=== PATIENT | female | born 1970 | race Caucasian/White ===

== ENCOUNTER 2018-03-23 11:37 | Emergency (ER) | payer OTHER ==
[~2018-03-23] VITALS: Ht 167.6 cm; Wt 113.4 kg
--- OUTSIDE RECORDS SUMMARY | ~2018-03-23 | XMS | Clinical Summary ---
Demographics + + + | Address | [address] | | | [place] [address] | + + + | Home Phone | | + + + | Preferred Language | Unknown | + + + | Marital Status | | + + + | Christianity Affiliation | Unknown | + + + | Race | Unknown | + + + | Ethnic Group | Unknown | + + + Author + + + | Author | [facility] | | | [facility] [place] | + + + | Organization | [facility] | | | [facility] [place] | + + + | Address | Unknown | + + + | Phone | Unavailable | + + + Support + + +---------+ + | Name | Relationship | Address | Phone | + + +---------+ + | Durga Walker | ECON | Unknown | | + + +---------+ + | Raymond Valladares | ECON | Unknown | | + + +---------+ + Care Team Providers + +------+ + | Care Food Production Associate Name | Role | Phone | + +------+ + | Avtar Huang NP | PP | Unavailable | + +------+ + Allergies + + + + + + | Active Allergy | Reactions | Severity | Noted | Comments | | | | | Date | | + + + + + + | Penicillins | Nausea And Vomiting | Medium | 16 | | | | | | 15 | | + + + + + + Current Medications + + +-------+---------+------+------+-------+ | Prescription | Sig. | Disp. | Refills | Star | End | Statu | | | | | | t | Date | s | | | | | | Date | | | + + +-------+---------+------+------+-------+ | albuterol 2.5 mg/3 | Take 2.5 mg by | | | | | Activ | | mL nebulizer | nebulization every 6 | | | | | e | | solution | hours as needed for | | | | | | | | Wheezing. | | | | | | + + +-------+---------+------+------+-------+ | meclizine | Take 25 mg by mouth | | | | | Activ | | (ANTIVERT) 25 mg | 3 times daily as | | | | | e | | tablet | needed. | | | | | | + + +-------+---------+------+------+-------+ | pseudoePHEDrine | Take 30 mg by mouth | | | | | Activ | | (SUDAFED) 30 mg | 3 times daily as | | | | | e | | tablet | needed. | | | | | | + + +-------+---------+------+------+-------+ | albuterol 90 | Inhale 2 puffs into | | | | | Activ | | mcg/puff inhaler | the lungs every 4 | | | | | e | | | hours as needed for | | | | | | | | Wheezing. | | | | | | + + +-------+---------+------+------+-------+ | fluticasone | 2 sprays by Nasal | | | | | Activ | | (FLONASE) 50 | route Daily. | | | | | e | | mcg/nasal spray | | | | | | | + + +-------+---------+------+------+-------+ | ranitidine | Take 150 mg by mouth | | | | | Activ | | (ZANTAC) 150 mg | as needed. | | | | | e | | tablet | | | | | | | + + +-------+---------+------+------+-------+ | calcium carbonate | Take 1 tablet by | | | | | Activ | | (TUMS) 500 mg | mouth Daily. | | | | | e | | chewable tablet | | | | | | | + + +-------+---------+------+------+-------+ Active Problems + + + | Problem | Noted Date | + + + | Esophageal reflux | 11/16/2014 | + + + | Abdominal pain, generalized | 11/16/2014 | + + + | Nausea with vomiting | 11/16/2014 | + + + | Early satiety | 11/16/2014 | + + + | H/O laparoscopic adjustable gastric banding | | + + + | Acid indigestion | | + + + | Obesity (BMI 30-39.9) | | + + + Family History + + +------+ + | Medical History | Relation | Name | Comments | + + +------+ + | Hypertension | Father | | | + + +------+ + | Diabetes, IDDM | Maternal | | | | | Grandfath | | | | | er | | | + + +------+ + | Hypertension | Mother | | | + + +------+ + | Osteoarthritis | Mother | | | + + +------+ + | Diabetes, IDDM | Paternal | | | | | Grandmoth | | | | | er | | | + + +------+ + | Cancer | | | | + + +------+ + | Diabetes | | | | + + +------+ + | Hypertension | | | | + + +------+ + + +------+--------+ + | Relation | Name | Status | Comments | + +------+--------+ + | Father | | Alive | | + +------+--------+ + | Maternal Grandfather | | | | + +------+--------+ + | Mother | | Alive | | + +------+--------+ + | Paternal Grandmother | | | | + +------+--------+ + Social History + +-------+ +--------+------+ | Tobacco Use | Types | Packs/Day | Years | Date | | | | | Used | | + +-------+ +--------+------+ | Never Smoker | | | | | + +-------+ +--------+------+ + +---+---+---+ | Smokeless Tobacco: | | | | | Never Used | | | | + +---+---+---+ + + +---------+ + | Alcohol Use | Drinks/We | oz/Week | Comments | | | ek | | | + + +---------+ + | No | | | | + + +---------+ + + + + | Sex Assigned at | Date Recorded | | | | + + + | Not on file | | + + + Last Filed Vital Signs + + + + | Vital Sign | Reading | Time Taken | + + + + | Blood Pressure | 116/60 | 12/18/2014 1110 PDT | + + + + | Pulse | 76 | 12/18/20140 PDT | + + + + | Temperature | 36.3 C (97.3 F) | 12/18/2014 0845 PDT | + + + + | Respiratory Rate | 15 | 12/18/20140 PDT | + + + + | Oxygen Saturation | 99% | 12/18/20140 PDT | + + + + | Inhaled Oxygen | - | - | | Concentration | | | + + + + | Weight | 97.5 kg (215 lb) | 12/18/2014844 PDT | + + + + | Height | 167.6 cm (5' 6") | 12/18/2014844 PDT | + + + + | Body Mass Index | 34.7 | 12/18/2014844 PDT | + + + + Plan of Treatment + + + + + | Health Maintenance | Due Date | Last Done | Comments | + + + + + | Vaccine: | | | | | Dtap/Tdap/Td (1 - | 1 | | | | Tdap) | | | | + + + + + | Cervical Cancer | | | | | Screening (Pap) | 2 | | | + + + + + | Vaccine: Influenza | | | | | (#1) | 8 | | | + + + + + Results Not on filefrom Last 3 Months Insurance + +--------+ +--------+ +---------+ | Payer | Benefi | Subscriber | Type | Phone | Address | | | t Plan | ID | | | | | | / | | | | | | | Group | | | | | + +--------+ +--------+ +---------+ | [employer] | [employer] | [id number] | Medica | +- | | | MEDICAID HMO | HEALTH | | id | 9821 | | | | [place] | | | | | | | [place] | | | | | + +--------+ +--------+ +---------+ + +--------+ +--------+ + + | Guarantor Name | Accoun | Relation to | Date | Phone | Billing Address | | | t Type | Patient | of | | | | | | | | | | + +--------+ +--------+ + + | NATE | Person | Self | [birth year] Home: | [address] | | [place] | [place] | | 1970 | [phone] | [place] | | [place] | [place] | | | [phone] | [phone] | + +--------+ +--------+ + +
--- OUTSIDE RECORDS SUMMARY | ~2018-03-23 | XMS ---
Demographics + + + | Address | [address] | | | [place] [address] | + + + | Preferred Language | Unknown | + + + | Marital Status | Unknown | + + + | Taoist Affiliation | Unknown | + + + | Race | Unknown | + + + | Ethnic Group | Unknown | + + + Author + + + | Author | [facility] | + + + | Organization | [facility] | + + + | Address | [address] | | | [place] [address] | + + + | Phone | | + + + Care Team Providers + + + + | Care Director Search Name | Role | Phone | + + + + Unavailable | Unavailable | + + + + PROBLEMS +---------+ + + +--------+ + + | Type | Condition | ICD9-CM | XNE18-YR | Onset | Condition | SNOMED | | | | Code | Code | Dates | Status | Code | +---------+ + + +--------+ + + | Problem | GERD | 530.81 | | | Active | 578446515 | | | (gastroeso | | | | | | | | phageal | | | | | | | | reflux | | | | | | | | disease) | | | | | | +---------+ + + +--------+ + + | Problem | Obesity | | E66.9 | | Active | 125062671 | +---------+ + + +--------+ + + | Problem | Type 2 | | E11.9 | | Active | 364939484 | | | diabetes | | | | | | | | mellitus | | | | | | | | without | | | | | | | | complicati | | | | | | | | ons | | | | | | +---------+ + + +--------+ + + | Problem | Hypertensi | | I10 | | Active | 16287191 | | | on | | | | | | +---------+ + + +--------+ + + | Problem | Calcaneal | M77.32 | | | Active | 8176915110 | | | spur of | | | | | [address] | | | left foot | | | | | | +---------+ + + +--------+ + + | Problem | Other | G89.29 | | | Active | 36901923 | | | chronic | | | | | | | | pain | | | | | | +---------+ + + +--------+ + + | Problem | Pain in | | M79.671 | | Active | 4838537732 | | | right foot | | | | | [address] | +---------+ + + +--------+ + + | Problem | Calcaneal | M77.31 | | | Active | 7711122106 | | | spur of | | | | | [address] | | | right foot | | | | | | +---------+ + + +--------+ + + | Problem | Pain in | | M79.672 | | Active | 7861619937 | | | left foot | | | | | [address] | +---------+ + + +--------+ + + | Problem | Hematochez | 578.1 | | | Active | 444025014 | | | ia | | | | | | +---------+ + + +--------+ + + | Problem | Menieres | 386.00 | | | Active | 02874561 | | | disease | | | | | | +---------+ + + +--------+ + + | Problem | Allergic | 493.90 | | | Active | 60166163 | | | asthma NOS | | | | | | | | w/o | | | | | | | | mention of | | | | | | | | status | | | | | | | | asthmaticu | | | | | | | | s or acute | | | | | | | | | | | | | | | | exacerbati | | | | | | | | on | | | | | | +---------+ + + +--------+ + + | Problem | Chronic | 477.9 | | | Active | 15003092 | | | allergic | | | | | | | | rhinitis | | | | | | +---------+ + + +--------+ + + | Problem | Back pain | 724.5 | | | Active | 865158471 | +---------+ + + +--------+ + + | Problem | Hx of | V45.86 | | | Active | 913630440 | | | laparoscop | | | | | | | | ic gastric | | | | | | | | banding | | | | | | +---------+ + + +--------+ + + ALLERGIES Unknown Allergies SOCIAL HISTORY No smoking Hx information available PLAN OF CARE VITAL SIGNS MEDICATIONS Unknown Medications RESULTS No Results PROCEDURES No Known procedures IMMUNIZATIONS No Known Immunizations"
--- OUTSIDE RECORDS SUMMARY | ~2018-03-23 | XMS | Clinical Summary ---
Demographics + + + | Address | [address] | | | [place] [address] | + + + | Home Phone | | + + + | Preferred Language | Unknown | + + + | Marital Status | | + + + | Anabaptism Affiliation | Unknown | + + + [...] [place] | | | | | [address] | | + + + + + Care Team Providers + +------+ + | Care Shelter Case Manager Name | Role | Phone | + +------+ + | Avtar Huang NP | PP | | + +------+ + Source Comments CHRISTINA is fully live on both EpicCare Ambulatory and EpicCare InPatient.[facility] Allergies + + + + + + [...] | + + + + + | INFLUENZA VACCINE | | | | | (FLU SHOT) | 8 | | | + + [...] | | | + +--------+ +--------+-------+---------+ | MANAGER SPECIALTY MEDICAID | MANAGER SPECIALTY | xxxxxxxx | Medica | | | [...] | [birth year] | Home: | [address] | | [place] | [place]/Fam | | 1970 | [phone] | [address] [place] | | | [place] | | | [address] | [phone] | + +--------+ +--------+ + +
--- OUTSIDE RECORDS SUMMARY | ~2018-03-23 | XMS | Clinical Summary ---
Demographics + + + | Address | [address] | | | [place] [address] | + + + | Home Phone | | + + + | Preferred Language | Unknown | + + + | Marital Status | | + + + | Church Affiliation | Unknown | + + + [...] [place] | | | | | [address] | | + + + + + Care Team Providers + +------+ + | Care Inspector Brake Lining Name | Role | Phone | + +------+ + | Avtar Huang NP | PP | | + +------+ + Source Comments CHRISTINA is fully live on both EpicCare Ambulatory and EpicCare InPatient.[facility] Allergies + + + + + [...] | | | + +--------+ +--------+-------+---------+ | [employer] | [employer] | xxxxxxxx | Medica | | | [...] | [birth year] | Home: | [address] | | [place] | [place]am | | 1970 | [phone] [address] [place] | | | [place] | | | [address] | [address] | + +--------+ +--------+ + +
--- OUTSIDE RECORDS SUMMARY | ~2018-03-23 | XMS ---
Demographics + + + | Address | [address] | | | [place] [address] | + + + | Preferred Language | Unknown | + + + | Marital Status | Unknown | + + + | Latter Day Affiliation | Unknown | + + + | Race | Unknown | + + + | Ethnic Group | Unknown | + + + Author + + + | Author | [facility] | + + + | Organization | [facility] | + + + | Address | [address] | | | [place] [address] | + + + | Phone | | + + + Care Team Providers + + + + | Care Doorshaker Name | Role | Phone | + + + + Unavailable | Unavailable | + + + + PROBLEMS + + + + + + + + | Type | Condition | ICD9-CM | AGR66-DG | Onset | Condition | SNOMED | | | | Code | Code | Dates | Status | Code | + + + + + + + + | Problem | GERD | 530.81 | | | Active | 611610226 | | | (gastroeso | | | | | | | | phageal | | | | | | | | reflux | | | | | | | | disease) | | | | | | + + + + + + + + | Problem | Obesity | | E66.9 | | Active | 857431449 | + + + + + + + + | Problem | Type 2 | | E11.9 | | Active | 623423960 | | | diabetes | | | | | | | | mellitus | | | | | | | | without | | | | | | | | complicati | | | | | | | | ons | | | | | | + + + + + + + + | Problem | Hypertensi | | I10 | | Active | 28495830 | | | on | | | | | | + + + + + + + + | Problem | Calcaneal | M77.32 | | | Active | 9995364586 | | | spur of | | | | | [address] | | | left foot | | | | | | + + + + + + + + | Problem | Other | G89.29 | | | Active | 02429473 | | | chronic | | | | | | | | pain | | | | | | + + + + + + + + | Problem | Pain in | | M79.671 | | Active | 3689659895 | | | right foot | | | | | [address] | + + + + + + + + | Problem | Calcaneal | M77.31 | | | Active | 4866058793 | | | spur of | | | | | [address] | | | right foot | | | | | | + + + + + + + + | Problem | Pain in | | M79.672 | | Active | 0875755956 | | | left foot | | | | | [address] | + + + + + + + + | Assessment | Abscess | | L02.91 | 17 Apr, | Active | 923205122 | | | | | | 2017 | | | + + + + + + + + | Problem | Hematochez | 578.1 | | | Active | 882786973 | | | ia | | | | | | + + + + + + + + | Problem | Menieres | 386.00 | | | Active | 05854841 | | | disease | | | | | | + + + + + + + + | Problem | Allergic | 493.90 | | | Active | 24811328 | | | asthma NOS | | [...] on | | | | | | + + + + + + + + | Problem | Chronic | 477.9 | | | Active | 15530656 | | | allergic | | | | | | | | rhinitis | | | | | | + + + + + + + + | Problem | Back pain | 724.5 | | | Active | 843823994 | + + + + + + + + | Problem | Hx of | V45.86 | | | Active | 982821069 | | | laparoscop | | | | | | | | ic gastric | | | | | | | | banding | | | | | | + + + + + + + + ALLERGIES + + + + +--------+ | Substance | Reaction | Event Type | Date | Status | + + + + +--------+ | Penicillin | vomiting | Drug Allergy | Oct, | Active | + + + + +--------+ | cillins | throat | Non Drug | Oct, | Active | | | swelliing | Allergy | | | + + + + +--------+ SOCIAL HISTORY No smoking Hx information available PLAN OF CARE VITAL SIGNS + + + + | Height | 64 in | 2016-11-13 | + + + + | Weight | 276.2 lbs | 2016-11-13 | + + + + | BMI | 47.40 kg/m2 | 2016-11-13 | + + + + | Temperature | 98.2 degrees Fahrenheit | 2016-11-13 | + + + + | Heart Rate | 94 /min | 2016-11-13 | + + + + | Blood pressure systolic | 152 mm Hg | 2016-11-13 | + + + + | Blood pressure diastolic | 98 mm Hg | 2016-11-13 | + + + + MEDICATIONS + + + + +--------+ + +--------+ | Medicati | Instruct | Dosage | Frequenc | Start | End Date | Duration | Status | | on | ions | | y | Date | | | | + + + + +--------+ + +--------+ | ibuprofe | Oral q | 5 tab | | | | | Active | | n 200 mg | 6-8 | | | | | | | | | hours | | | | | | | + + + + +--------+ + +--------+ | Albutero | Inhalati | 3 ml as | 4h | | | 10 | Active | | l | on every | needed | | | | day(s) | | | Sulfate | 4 hrs | | | | | | | | (2.5 | | | | | | | | | MG/3ML) | | | | | | | | | 0.083% | | | | | | | | + + + + +--------+ + +--------+ | Albutero | Inhalati | 2 puffs | 4h | | | 30 | Active | | l | on every | as | | | | day(s) | | | Sulfate | 4 hrs | needed | | | | | | | HFA 108 | | | | | | | | | (90 | | | | | | | | | Base) | | | | | | | | | MCG/ACT | | | | | | | | + + + + +--------+ + +--------+ | SMZ-TMP | | 1 tab | 12h | | | | Active | | DS | | | | | | | | | 800-160 | | | | | | | | | mg | | | | | | | | + + + + +--------+ + +--------+ | Mucinex | Orally | 1 tablet | 12h | | | | Active | | 600 MG | every 12 | as | | | | | | | | hrs | needed | | | | | | + + + + +--------+ + +--------+ RESULTS No Results PROCEDURES + + + + + | Procedure | Date Ordered | Related Diagnosis | Body Site | + + + + + | Doctor no charge/no | November 13, 2016 | | | | charge for visit | | | | + + + + + IMMUNIZATIONS No Known Immunizations"
--- OUTSIDE RECORDS SUMMARY | ~2018-03-23 | XMS ---
Demographics + + + | Address | [address] | | | [place] [address] | + + + | Preferred Language | Unknown | + + + | Marital Status | Unknown | + + + | Buddhist Affiliation | Unknown | + + + | Race | Unknown | + + + | Ethnic Group | Unknown | + + + Author + + + | Author | [facility] | + + + | Organization | [facility] | + + + | Address | [address] | | | [place] [address] | + + + | Phone | | + + + Care Team Providers + + + + | Care Program Manager Slp Name | Role | Phone | + + + + Unavailable | Unavailable | + + + + PROBLEMS +---------+ + + +--------+ + + | Type | Condition | ICD9-CM | [id number] | Onset | Condition | SNOMED | | | | Code | Code | Dates | Status | Code | +---------+ + + +--------+ + + | Problem | GERD | 530.81 | | | Active | 261173029 | | | (gastroeso | | | | | | | | phageal | | | | | | | | reflux | | | | | | | | disease) | | | | | | +---------+ + + +--------+ + + | Problem | Obesity | | E66.9 | | Active | 479345330 | +---------+ + + +--------+ + + | Problem | Type 2 | | E11.9 | | Active | 771947126 | | | diabetes | | | | | | | | mellitus | | | | | | | | without | | | | | | | | complicati | | | | | | | | ons | | | | | | +---------+ + + +--------+ + + | Problem | Hypertensi | | I10 | | Active | 43391038 | | | on | | | | | | +---------+ + + +--------+ + + | Problem | Calcaneal | M77.32 | | | Active | 7833654683 | | | spur of | | | | | [address] | | | left foot | | | | | | +---------+ + + +--------+ + + | Problem | Other | G89.29 | | | Active | 52665174 | | | chronic | | | | | | | | pain | | | | | | +---------+ + + +--------+ + + | Problem | Pain in | | M79.671 | | Active | 8544087642 | | | right foot | | | | | [address] | +---------+ + + +--------+ + + | Problem | Calcaneal | M77.31 | | | Active | 1962661700 | | | spur of | | | | | [address] | | | right foot | | | | | | +---------+ + + +--------+ + + | Problem | Pain in | | M79.672 | | Active | 0914641834 | | | left foot | | | | | [address] | +---------+ + + +--------+ + + | Problem | Hematochez | 578.1 | | | Active | 622118282 | | | ia | | | | | | +---------+ + + +--------+ + + | Problem | Menieres | 386.00 | | | Active | 13971976 | | | disease | | | | | | +---------+ + + +--------+ + + | Problem | Allergic | 493.90 | | | Active | 75275813 | | | asthma NOS | | [...] | 477.9 | | | Active | 71607342 | | | allergic | | | | | | | | rhinitis | | | | | | +---------+ + + +--------+ + + | Problem | Back pain | 724.5 | | | Active | 024172494 | +---------+ + + +--------+ + + | Problem | Hx of | V45.86 | | | Active | 089789750 | | | laparoscop | | | | | | | | ic gastric | | | | | | | | banding | | | | | | +---------+ + + +--------+ + + ALLERGIES No Information SOCIAL HISTORY Never Assessed PLAN OF CARE VITAL SIGNS MEDICATIONS + + + + + + + +--------+ | Medicati | Instruct | Dosage | Frequenc | Start | End Date | Duration | Status | | on | ions | | y | Date | | | | + + + + + + + +--------+ | Metformi | Orally | 1 tablet | 12h | 25 Sep, | | 30 | Active | | n HCl | Twice a | with | | 2017 | | day(s) | | | 500 mg | day | meals | | | | | | + + + + + + + +--------+ | Atorvast | Orally | 1 tablet | 24h | 25 Sep, | | 30 | Active | | atin | Once a | | | 2016 | | day(s) | | | Calcium | day | | | | | | | | 40 mg | | | | | | | | + + + + + + + +--------+ RESULTS No Results PROCEDURES No Known procedures IMMUNIZATIONS No Known Immunizations MEDICAL (GENERAL) HISTORY + + + + | Type | Description | Date | + + + + | Medical History | COPD diagnosed 12/05 | | + + + + | Medical History | diabetes mellitus (prior to | | | | lap band) | | + + + + | Medical History | hypertension (prior to lap | | | | band) | | + + + + | Medical History | blood transfusion (after | | | | hysterectomy) | | + + + + | Medical History | Meniere's disease | | + + + + | Medical History | Mild hearing deficit in | | | | left ear. | | + + + + | Surgical History | appendectomy | 1990 | + + + + | Surgical History | supracervical hysterectomy, | 2002 | | | with RSO | | + + + + | Surgical History | lap band surgery | 2009 | + + + + | Surgical History | C section | | + + + + | Hospitalization History | ER visit for FLU | 07/30/16 | + + + +"
--- OUTSIDE RECORDS SUMMARY | ~2018-03-23 | XMS | Clinical Summary ---
Demographics + + + | Address | [address] | | | [place] [address] | + + + | Home Phone | | + + + | Preferred Language | Unknown | + + + | Marital Status | | + + + | Hinduism Affiliation | Unknown | + + + | Race | Unknown | + + + | Ethnic Group | Unknown | + + + Author + + + | Author | [facility] | | | and [place] | + + + | Organization | [facility] | | | and [...] Team Providers + +------+ + | Care Assembly Machine Tender Name | Role | Phone | + [...] | [employer] | [employer] | [id number] | Medica | +- | | | [...] | [place] | | | [address] | [address] | + +--------+ +--------+ + +
--- OUTSIDE RECORDS SUMMARY | ~2018-03-23 | XMS ---
Demographics + + + | Address | [address] | | | [place] [address] | + + + | Preferred Language | Unknown | + + + | Marital Status | Unknown | + + + | Worship Affiliation | Unknown | + + + | Race | Unknown | + + + | Ethnic Group | Unknown | + + + Author + + + | Author | [facility] | + + + | Organization | [facility] | + + + | Address | [address] | | | [place] [address] | + + + | Phone | | + + + Care Team Providers + + + + | Care Solar Panel Installation Supervisor Name | Role | Phone | + + + + Unavailable | Unavailable | + + + + PROBLEMS +---------+ + + +--------+ + + | Type | Condition | ICD9-CM | CLN00-DU | Onset | Condition | SNOMED | | | | Code | Code | Dates | Status | Code | +---------+ + + +--------+ + + | Problem | GERD | 530.81 | | | Active | 962838987 | | | (gastroeso | | | | | | | | phageal | | | | | | | | reflux | | | | | | | | disease) | | | | | | +---------+ + + +--------+ + + | Problem | Obesity | | E66.9 | | Active | 927245064 | +---------+ + + +--------+ + + | Problem | Type 2 | | E11.9 | | Active | 832757360 | | | diabetes | | | | | | | | mellitus | | | | | | | | without | | | | | | | | complicati | | | | | | | | ons | | | | | | +---------+ + + +--------+ + + | Problem | Hypertensi | | I10 | | Active | 40331757 | | | on | | | | | | +---------+ + + +--------+ + + | Problem | Calcaneal | M77.32 | | | Active | 4960560554 | | | spur of | | | | | 53294 | | | left foot | | | | | | +---------+ + + +--------+ + + | Problem | Other | G89.29 | | | Active | 74190805 | | | chronic | | | | | | | | pain | | | | | | +---------+ + + +--------+ + + | Problem | Pain in | | M79.671 | | Active | [id number] | | | right foot | | | | | 73563 | +---------+ + + +--------+ + + | Problem | Calcaneal | M77.31 | | | Active | 5535003861 | | | spur of | | | | | 425[address] | | | right foot | | | | | | +---------+ + + +--------+ + + | Problem | Pain in | | M79.672 | | Active | 2025200734 | | | left foot | | | | | 21111 | +---------+ + + +--------+ + + | Problem | Hematochez | 578.1 | | | Active | 845587609 | | | ia | | | | | | +---------+ + + +--------+ + + | Problem | Menieres | 386.00 | | | Active | 13475472 | | | disease | | | | | | +---------+ + + +--------+ + + | Problem | Allergic | 493.90 | | | Active | 41057475 | | | asthma NOS | | [...] | 477.9 | | | Active | 94452411 | | | allergic | | | | | | | | rhinitis | | | | | | +---------+ + + +--------+ + + | Problem | Back pain | 724.5 | | | Active | 040101146 | +---------+ + + +--------+ + + | Problem | Hx of | V45.86 | | | Active | 919189457 | | | laparoscop | | | | | | | | ic gastric | | | | | | | | banding | | | | | | +---------+ + + +--------+ + + ALLERGIES + + + + +--------+ | Substance | Reaction | Event Type | Date | Status | + + + + +--------+ | Penicillin | vomiting | Drug Allergy | Mar, | Active | + + + + +--------+ | cillins | throat | Non Drug | Mar, | Active | | | swelliing | Allergy | | | + + + + +--------+ SOCIAL HISTORY Never Assessed PLAN OF CARE + +---------+ | Activity | Details | + +---------+ +---+ | | +---+ + + + | Follow Up | 2 -3 Weeks Reason:null | + + + | Pending Test | TSH | + + + | Pending Test | Sedimentation Rate-Westergren | + + + | Pending Test | Comp. Metabolic Panel (14) | + + + | Pending Test | Lipid Panel | + + + | Pending Test | Hemoglobin A1C Panel | + + + | Pending Test | EKG | + + + VITAL SIGNS + + + + | Height | 64 in | 2017-04-18 | + + + + | Weight | 279 lbs | 2017-04-18 | + + + + | BMI | 47.89 kg/m2 | 2017-04-18 | + + + + | Temperature | 98.6 degrees Fahrenheit | 2017-04-18 | + + + + | Heart Rate | 87 /min | 2017-04-18 | + + + + | Blood pressure systolic | 160 mm Hg | 2017-04-18 | + + + + | Blood pressure diastolic | 111 mm Hg | 2017-04-18 | + + + + MEDICATIONS + + + + + + + +--------+ | Medicati | Instruct | Dosage | Frequenc | Start | End Date | Duration | Status | | on | ions | | y | Date | | | | + + + + + + + +--------+ | FreeStyl | | as | | 20 Sep, | | | Active | | e | | directed | | 2016 | | | | | Lancets | | | | | | | | | - | | | | | | | | + + + + + + + +--------+ | FreeStyl | | as | | 20 Sep, | | | Active | | e Lite - | | directed | | 2016 | | | | + + + + + + + +--------+ | Lisinopr | Orally | 1 tablet | 24h | 20 Sep, | | 30 | Active | | [place] | Once a | | | 2016 | | day(s) | | | chloroth | day | | | | | | | | iazide | | | | | | | | | 10-12.5 | | | | | | | | | MG | | | | | | | | + + + + + + + +--------+ | Meloxica | Orally | 1 tablet | 24h | 20 Sep, | 19 Nov, | 30 | Active | | m 7.5 MG | Once a | | | 2017 | 2017 | day(s) | | | | day | | | | | | | + + + + + + + +--------+ | Indocin | Orally | 1 | 8h | Feb, | | days | Active | | 50 mg | tid | capsule | | 2015 | | | | | | | with | | | | | | | | | food | | | | | | + + + + + + + +--------+ | Albutero | Inhalati | [...] + + + + + +--------+ | Albutero | Inhalati | [...] + + + + + +--------+ | FreeStyl | In Vitro | as | | 20 Sep, | | | Active | | e Lite | check | directed | | 2016 | | | | | Test - | glucose | | | | | | | | | daily | | | | | | | + + + + + + + +--------+ RESULTS No Results PROCEDURES + + +--------+ + | Procedure | Date Ordered | Result | Body Site | + + +--------+ + | DS[facility] MED/CURRENT | Apr 18, 2017 | | | | MED MERGE | | | | + + +--------+ + | DOC MEDS VERIFIED | Apr 18, 2017 | | | | W/PT OR RE | | | | + + +--------+ + IMMUNIZATIONS No Known Immunizations MEDICAL (GENERAL) HISTORY [...]
[~2018-03-23 11:37] MED LIST: ALBUTEROL SULF8.5 GM INH; ALBUTEROL2.5 MG/3 M INH; AZITHROMYCIN250 MG PO; BACTRIM DS TAB1 EACH PO; IBUPROFEN800 MG PO; LOMOTIL TABLET1 EACH PO; PREDNISONE20 MG PO; PSEUDOEPHEDRINE60 MG PO; TRAMADOL HCL50 MG PO; ZITHROMAX250 MG PO; ZOFRAN ODT4 MG PO
[2018-03-23] MEDS ORDERED: METFORMIN HCL1000 MG PO (11:46)
[2018-03-23] MEDS ORDERED: LISINOPRIL-HCT1 EAC2 PO (11:47)
[2018-03-23] MEDS ORDERED: NAPROSYN500 MG PO (12:15)
[2018-03-23] MEDS ORDERED: CYCLOBENZAPRINE5 MG PO (12:15)
== END 2018-03-23 12:31 | disposition home or self-care (01) ==
LOC: ED 11:37
DX: S86.812A Strain of other muscle(s) and tendon(s) at lower leg level, left leg, initial encounter (principal); E66.01 Morbid (severe) obesity due to excess calories; Z88.0 Allergy status to penicillin; Z91.018 Allergy to other foods; Z79.84 Long term (current) use of oral hypoglycemic drugs; Z79.899 Other long term (current) drug therapy; X58.XXXA Exposure to other specified factors, initial encounter; Y92.89 Other specified places as the place of occurrence of the external cause; Y99.0 Civilian activity done for income or pay
CPT/HCPCS: 99283

== ENCOUNTER 2018-05-04 10:57 | Emergency (ER) | payer OTHER ==
[~2018-05-04] VITALS: Ht 167.6 cm; Wt 113.4 kg
--- OUTSIDE RECORDS SUMMARY | ~2018-05-04 | XMS | Clinical Summary ---
Demographics + + + | Address | [address] | | | [place] [address] | + + + | Home Phone | | + + + | Preferred Language | Unknown | + + + | Marital Status | | + + + | Nondenominational Affiliation | Unknown | + + + | Race | White | + + + | Ethnic Group | Not or | + + + Author + + + | Author | [facility] | + + + | Organization | [facility] | + + + | Address | Unknown | + + + | Phone | Unavailable | + + + Support + + + + + | Name | Relationship | Address | Phone | + + + + + | JOSEPHINE WALKER | ECON | [address] | | | | | [place] | | | | | [address] | | + + + + + Care Team Providers + +------+ + | Care Training Representative Name | Role | Phone | + +------+ + | Avtar Huang NP | PP | | + +------+ + Source Comments CHRISTINA is fully live on both EpicCare Ambulatory and EpicCare InPatient.[facility] Allergies + + + + + + | Active Allergy | Reactions | Severity | Noted | Comments | | | | | Date | | + + + + + + | Penicillins | Nausea and Vomiting | | 05/06/20 | | | | | | 15 | | + + + + + + Current Medications + + +-------+---------+------+------+-------+ | Prescription | Sig. | Disp. | Refills | Star | End | Statu | | | | | | t | Date | s | | | | | | Date | | | + + +-------+---------+------+------+-------+ | FLUTICASONE 50 | 2 sprays once daily. | | 0 | 08/2 | | Activ | | mcg/actuation nasal | | | | 6/20 | | e | | spray,suspension | | | | 15 | | | + + +-------+---------+------+------+-------+ | OMEPRAZOLE 20 mg | Take 20 mg by mouth | | 0 | 08/2 | | Activ | | oral capsule,delayed | once daily. | | | 6/20 | | e | | release(DR/EC) | | | | 15 | | | + + +-------+---------+------+------+-------+ | PANTOPRAZOLE 40 mg | Take 40 mg by mouth | | 0 | 03/30 | | Activ | | oral tablet,delayed | once daily. | | | 08/18 | | e | | release (DR/EC) | | | | 15 | | | + + +-------+---------+------+------+-------+ | albuterol 0.083% | Take 2.5 mg by | | | | | Activ | | 2.5 mg /3 mL (0.083 | nebulization every 6 | | | | | e | | %) inhalation | hours as needed for | | | | | | | solution for | Wheezing. | | | | | | | nebulization | | | | | | | + + +-------+---------+------+------+-------+ | albuterol 90 | Inhale. | | | | | Activ | | mcg/actuation | | | | | | e | | inhalation HFA | | | | | | | | aerosol inhaler | | | | | | | + + +-------+---------+------+------+-------+ | calcium carbonate | Take by mouth. | | | | | Activ | | chewable 500 mg | | | | | | e | | (1,250 mg) oral | | | | | | | | tablet,chewable | | | | | | | + + +-------+---------+------+------+-------+ | ranitidine | Take by mouth. | | | | | Activ | | (ZANTAC) 150 mg oral | | | | | | e | | tablet | | | | | | | + + +-------+---------+------+------+-------+ Active Problems + + + | Problem | Noted Date | + + + | GERD with apnea | 05/06/2015 | + + + | Dysphagia | 05/06/2015 | + + + | Gastric banding status | 05/06/2015 | + + + | Dilatation of esophagus | 05/06/2015 | + + + | Dilation of stomach | 05/06/2015 | + + + | Cough | 05/06/2015 | + + + | Sleeps in sitting position due to orthopnea | 05/06/2015 | + + + Social History + +-------+ +--------+------+ | Tobacco Use | Types | Packs/Day | Years | Date | | | | | Used | | + +-------+ +--------+------+ | Never Smoker | | | | | + +-------+ +--------+------+ + + + | Sex Assigned at | Date Recorded | | | | + + + | Not on file | | + + + Last Filed Vital Signs + + + + | Vital Sign | Reading | Time Taken | + + + + | Blood Pressure | 134/79 | 05/06/2015 3:02 PM PDT | + + + + | Pulse | 82 | 05/06/2015 3:02 PM PDT | + + + + | Temperature | 36.7 C (98 F) | 05/06/2015 3:02 PM PDT | + + + + | Respiratory Rate | 18 | 05/06/2015 3:02 PM PDT | + + + + | Oxygen Saturation | 97% | 05/06/2015 3:02 PM PDT | + + + + | Inhaled Oxygen | - | - | | Concentration | | | + + + + | Weight | 103.9 kg (229 lb) | 05/06/2015 3:02 PM PDT | + + + + | Height | 167 cm (5' 5.75") | 05/06/2015 3:02 PM PDT | + + + + | Body Mass Index | 37.24 | 05/06/2015 3:02 PM PDT | + + + + Plan of Treatment + + + + + | Health Maintenance | Due Date | Last Done | Comments | + + + + + | Influenza (Flu) | | | | | vaccination (#1) | 8 | | | + + + + + Results Not on filefrom Last 3 Months Insurance + +--------+ +--------+-------+---------+ | Payer | Benefi | Subscriber | Type | Phone | Address | | | t Plan | ID | | | | | | / | | | | | | | Group | | | | | + +--------+ +--------+-------+---------+ | STOCK CLERK SELF SERVICE STORE MEDICAID | STOCK CLERK SELF SERVICE STORE | xxxxxxxx | Medica | | | | | [place] | | id | | | | | [place] | | | | | + +--------+ +--------+-------+---------+ + +--------+ +--------+ + + | Guarantor Name | Accoun | Relation to | Date | Phone | Billing Address | | | t Type | Patient | of | | | | | | | | | | + +--------+ +--------+ + + | ROZINA DAVIS | Person | Self [birth year] Home: | [address] | | [place] | al/Fam | | 1970 | [phone] [address] [place] | | | [place] | | | [address] | [phone] | + +--------+ +--------+ + +
--- OUTSIDE RECORDS SUMMARY | ~2018-05-04 | XMS | Clinical Summary ---
Demographics + + + | Address | [address] | | | [place] [address] | + + + | Home Phone | | + + + | Preferred Language | Unknown | + + + | Marital Status | | + + + | Episcopal Affiliation | Unknown | + + + | Race | Unknown | + + + | Ethnic Group | Unknown | + + + Author + + + | Author | [facility] | | | and [place] | + + + | Organization | [facility] | | | and [...] Team Providers + +------+ + | Care Dairy Bacteriologist Name | Role | Phone | + [...] | [employer] | [facility] | [id number] | [place] | +- | | | [...] | [place] | | | [address] | [phone] | + +--------+ +--------+ + +
--- OUTSIDE RECORDS SUMMARY | ~2018-05-04 | XMS | Clinical Summary ---
Demographics + + + | Address | [address] | | | [place] [address] | + + + | Home Phone | | + + + | Preferred Language | Unknown | + + + | Marital Status | | + + + | Baptism Affiliation | Unknown | + + + [...] [place] | | | | | [address] | | + + + + + Care Team Providers + +------+ + | Care Livestock Showman Name | Role | Phone | + +------+ + | Avtar Huang NP | PP | | + +------+ + Source Comments CHRISTINA is fully live on both EpicCare Ambulatory and EpicCare InPatient.[facility] Allergies + + + + + + [...] | | | + +--------+ +--------+-------+---------+ | ADMISSIONS CLINICIAN MEDICAID | ADMISSIONS CLINICIAN | xxxxxxxx | Med[employer] | | | [...] | [birth year] | Home: | [address] | | [place] | al/Fam | | 1970 | [phone] | [address] [place] | | | [place] | | | [address] | [address] | + +--------+ +--------+ + +
--- OUTSIDE RECORDS SUMMARY | ~2018-05-04 | XMS | Clinical Summary ---
Demographics + + + | Address | [address] | | | [place] [address] | + + + | Home Phone | | + + + | Preferred Language | Unknown | + + + | Marital Status | | + + + | Denominational Affiliation | Unknown | + + + | Race | Unknown | + + + | Ethnic Group | Unknown | + + + Author + + + | Author | [facility] | | | and [place] | + + + | Organization | [facility] | | | [...] Team Providers + +------+ + | Care Concaving Machine Operator Name | Role | Phone | + [...] | [employer] | [facility] | [id number] | [place] | +- | | | [...] | [place] | | | [address] | [phone] | + +--------+ +--------+ + +
[~2018-05-04 10:57] MED LIST changes: +CYCLOBENZAPRINE5 MG PO; +LISINOPRIL-HCT1 EAC2 PO; +METFORMIN HCL1000 MG PO; +NAPROSYN500 MG PO
== END 2018-05-04 14:11 | disposition home or self-care (01) ==
LOC: ED 10:57
DX: K59.00 Constipation, unspecified (principal); J44.9 Chronic obstructive pulmonary disease, unspecified; E66.01 Morbid (severe) obesity due to excess calories; Z88.0 Allergy status to penicillin; Z79.84 Long term (current) use of oral hypoglycemic drugs; Z79.899 Other long term (current) drug therapy
CPT/HCPCS: 74177; 80053; 81001; 83690; 85025; 96374; 96375; 99284; J1170; J2405; J7030; Q9967

== ENCOUNTER → 2020-05-31 | Emergency (ER) | payer OTHER ==
[~2020-05-31] VITALS: Ht 167.6 cm; Wt 108.9 kg
[~2020-05-31] MED LIST changes: +BYDUREON P2 MG/0.65 INJ; +ONDANSETRON ODT8 MG PO
--- NOTE | 2020-06-01 22:22 | PATH ---
[facility] [address], [place] [address] Signed ORDERING PHYSICIAN: Dustin Ortiz MD PATIENT NAME: BHAVYA GONZALEZY RAZ GENDER: F : 1970 Prior History: No cases found. SPECIMEN(S): No Source Given MOLECULAR PATHOLOGY RESULTS: SARS-CoV-2 Not Detected ADDITIONAL NOTES.: The Dupont Fusion SARS-CoV-2 Assay is a multiplex real-time PCR (RT-PCR) in vitro diagnostic test intended for the qualitative detection of RNA from SARS-CoV-2 from individuals who meet COVID-19 clinical and/or epidemiological criteria. In general, SARS-CoV-2 RNA can be detected during the acute phase of infection. Positive results indicate the presence of SARS-CoV-2 RNA. Clinical correlation with patient history and other diagnostic information is necessary to determine patient infection status. Positive results do not rule out bacterial infection or co-infection with other viruses. Negative results do not preclude SARS-CoV-2 infection and should not be used as the sole basis for patient management decisions. Negative results must be combined with other clinical observations, patient history, and epidemiological information. The Dupont Fusion SARS-CoV-2 Assay is not yet approved or cleared by the [place] FDA. When there are no FDA-approved or cleared tests available, and other criteria are met, FDA can make tests available under an emergency access mechanism called an Emergency Use Authorization (EUA). The EUA for this test is supported by the Drug Safety Associate of Health and Human Service's (HHS's) declaration that circumstances exist to justify the emergency use of in vitro diagnostics for the detection and/or diagnosis of the virus that causes COVID-19. This EUA will remain in effect for the duration of the COVID-19 declaration justifying emergency of IVDs, unless it is terminated or revoked by FDA, after which the test may no longer be used. The Dupont Fusion SARS-CoV-2 Assay is for use only under EUA PATIENT NAME: NATE WALKERMARIA C RAZ PATHOLOGY DATE OF : 74 REPORT #: [id number] PHYSICIAN: SHEILA LU PCP: BRIGIDO ANN REPORT IS CONFIDENTIAL AND NOT TO BE RELEASED WITHOUT AUTHORIZATION [address] [place], [place] [address] Signed in [place] laboratories certified under the Clinical Laboratory Improvement Amendments of 1988 (CLIA) to perform high complexity tests. [facility] is certified under CLIA to perform high complexity clinical laboratory testing. PERFORMING LABORATORY.: Molecular testing was performed by [facility] [place] [address] (Environmental Conservation Officer: Yury Lovett D.O.; CLIA#: [id number]) Diagnostician: System Interface Pathologist Electronically Signed 06/01/2020 Copies: ~ PATIENT NAME: MARIA C GONZALEZ PATHOLOGY DATE OF : 74 REPORT #: [id number] PHYSICIAN: SHEILA LU PCP: BRIGIDO ANN REPORT IS CONFIDENTIAL AND NOT TO BE RELEASED WITHOUT AUTHORIZATION
== END ==
LOC: ED 19:40
DX: A08.4 Viral intestinal infection, unspecified (principal); Z20.828 Contact with and (suspected) exposure to other viral communicable diseases; J44.9 Chronic obstructive pulmonary disease, unspecified; E66.01 Morbid (severe) obesity due to excess calories; Z87.891 Personal history of nicotine dependence; Z88.0 Allergy status to penicillin; Z79.84 Long term (current) use of oral hypoglycemic drugs; Z79.899 Other long term (current) drug therapy
CPT/HCPCS: 96374; 99284-25; C9803; J2405

== ENCOUNTER 2020-09-01 14:26 | Emergency (ER) | payer OTHER ==
[~2020-09-01] VITALS: Ht 167.6 cm; Wt 108.9 kg
[2020-09-01] MEDS ORDERED: ZOFRAN4 MG PO (16:40)
[2020-09-01] MEDS ORDERED: DICYCLOMINE HCL20 MG PO (16:40)
== END 2020-09-01 17:18 | disposition home or self-care (01) ==
LOC: ED 14:26
DX: K58.1 Irritable bowel syndrome with constipation (principal); K58.0 Irritable bowel syndrome with diarrhea; J44.9 Chronic obstructive pulmonary disease, unspecified; E66.01 Morbid (severe) obesity due to excess calories; Z88.0 Allergy status to penicillin; Z79.899 Other long term (current) drug therapy; Z79.84 Long term (current) use of oral hypoglycemic drugs
CPT/HCPCS: 74177; 80053; 81001; 83690; 85025; 99284-25; J1885; J2405; J7030; Q9967

== ENCOUNTER 2021-10-10 07:41 | Emergency (ER) | payer OTHER ==
[~2021-10-10] VITALS: Ht 167.6 cm; Wt 108.9 kg
[~2021-10-10 07:41] MED LIST changes: +DICYCLOMINE HCL20 MG PO; +ZOFRAN4 MG PO
[2021-10-10] MEDS ORDERED: EZETIMIBE10 MG PO (07:56)
[2021-10-10] MEDS ORDERED: ALOGLIPTIN25 MG PO (07:56)
[2021-10-10] MEDS ORDERED: METFORMIN HCL750 MG PO (07:57)
[2021-10-10] MEDS ORDERED: HYDROCODON-ACE1 EA10 PO (09:48)
== END 2021-10-10 10:11 | disposition home or self-care (01) ==
LOC: ED 07:41
DX: S83.91XA Sprain of unspecified site of right knee, initial encounter (principal); M24.08 Loose body, other site; J44.9 Chronic obstructive pulmonary disease, unspecified; E66.01 Morbid (severe) obesity due to excess calories; Z88.0 Allergy status to penicillin; Z88.8 Allergy status to other drugs, medicaments and biological substances; Z91.010 Allergy to peanuts; Z79.899 Other long term (current) drug therapy; Z79.84 Long term (current) use of oral hypoglycemic drugs; X50.9XXA Other and unspecified overexertion or strenuous movements or postures, initial encounter
CPT/HCPCS: 73560; 99283-25; A9270

== ENCOUNTER 2022-07-03 20:20 | Emergency (ER) | payer OTHER ==
[~2022-07-03] VITALS: Ht 167.6 cm; Wt 116.1 kg
[~2022-07-03 20:20] MED LIST changes: +ALOGLIPTIN25 MG PO; +EZETIMIBE10 MG PO; +HYDROCODON-ACE1 EA10 PO; +METFORMIN HCL750 MG PO
[2022-07-04] MEDS ORDERED: ONDANSETRON ODT8 MG PO (01:02)
[2022-07-04] MEDS ORDERED: PROTONIX40 MG PO (01:02)
[2022-07-04] MEDS ORDERED: HYDROCODON-ACE1 EA10 PO (01:02)
== END 2022-07-04 01:28 | disposition home or self-care (01) ==
LOC: ED 20:20
DX: R10.11 Right upper quadrant pain (principal); J44.9 Chronic obstructive pulmonary disease, unspecified; Z20.822 Contact with and (suspected) exposure to COVID-19; Z88.0 Allergy status to penicillin; Z88.8 Allergy status to other drugs, medicaments and biological substances; Z79.899 Other long term (current) drug therapy; Z79.84 Long term (current) use of oral hypoglycemic drugs
CPT/HCPCS: 36415; 76705; 80053; 81003; 83690; 85025; 85610; 87502; 96374; 96375; 99284-25; A9270; C9113; J1170; J2405; J7030; U0003

== ENCOUNTER 2022-07-09 11:36 | Emergency (ER) | payer OTHER ==
[~2022-07-09] VITALS: Ht 167.6 cm; Wt 116.1 kg
[~2022-07-09 11:36] MED LIST changes: +PROTONIX40 MG PO
--- OUTSIDE RECORDS SUMMARY | 2022-07-09 11:44 | XMS ---
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 E.Arsen VISIT COUNT (12 MO.) 3 [facility] TOTAL 3 NOTE: Visits indicate total known visits. 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 of oral hypoglycemic drugs - Allergy status to other drugs, medicaments and biological substances - Chronic obstructive pulmonary disease, unspecified - Upper abdominal pain, unspecified - Other mcc (current) drug therapy - Contact with and (suspected) exposure to COVID-19 - Right upper quadrant pain - Allergy status to penicillin 10/10/2021 07:42 [facility] [place] TYPE: Emergency COMPLAINT: - R KNEE PAIN DIAGNOSES: - Allergy status to other drugs, medicaments and biological substances - Allergy to peanuts - Other and unspecified overexertion or strenuous movements or postures, initial encounter - correction (current) use of oral hypoglycemic drugs - Allergy status to penicillin - Loose body, other site - Chronic obstructive pulmonary disease, unspecified - Morbid (severe) obesity due to excess calories - Other technician terminal and repeater (current) drug therapy - Sprain of unspecified site of right knee, initial encounter - Pain in right knee INPATIENT VISIT TRACKING (12 MO.) No inpatient visits to display in this time frame [email or web address]
[2022-07-09] MEDS ORDERED: DICYCLOMINE HCL20 MG PO (16:30)
== END 2022-07-09 16:59 | disposition home or self-care (01) ==
LOC: ED 11:36
DX: R10.12 Left upper quadrant pain (principal); J44.9 Chronic obstructive pulmonary disease, unspecified; E66.01 Morbid (severe) obesity due to excess calories; Z88.0 Allergy status to penicillin; Z88.8 Allergy status to other drugs, medicaments and biological substances; Z79.899 Other long term (current) drug therapy; Z79.84 Long term (current) use of oral hypoglycemic drugs
CPT/HCPCS: 36415; 74177; 80053; 83690; 85025; 96375; 99284-25; A9270; J1170; J2405; J7030; Q9967

== ENCOUNTER 2022-08-13 13:18 | Emergency (ER) | payer OTHER ==
[~2022-08-13] VITALS: Ht 167.6 cm; Wt 113.4 kg
[2022-08-13] MEDS ORDERED: HYDROCODON-ACE1 EA10 PO (13:39)
== END 2022-08-13 14:00 | disposition home or self-care (01) ==
LOC: ED 13:18
DX: T23.211A Burn of second degree of right thumb (nail), initial encounter (principal); T23.171A Burn of first degree of right wrist, initial encounter; T23.121A Burn of first degree of single right finger (nail) except thumb, initial encounter; T31.0 Burns involving less than 10% of body surface; X12.XXXA Contact with other hot fluids, initial encounter; Z88.0 Allergy status to penicillin; Z88.8 Allergy status to other drugs, medicaments and biological substances; Z79.899 Other long term (current) drug therapy; Z79.84 Long term (current) use of oral hypoglycemic drugs
CPT/HCPCS: 99283

== ENCOUNTER 2022-12-31 23:07 | Emergency (ER) | payer OTHER ==
[~2022-12-31] VITALS: Ht 167.6 cm; Wt 113.4 kg
[2023-01-01 00:14] VITALS: BP 136/77
== END 2023-01-01 00:15 | disposition home or self-care (01) ==
LOC: ED 23:07
DX: S80.861A Insect bite (nonvenomous), right lower leg, initial encounter (principal); S80.862A Insect bite (nonvenomous), left lower leg, initial encounter; J44.9 Chronic obstructive pulmonary disease, unspecified; W57.XXXA Bitten or stung by nonvenomous insect and other nonvenomous arthropods, initial encounter; Z88.0 Allergy status to penicillin; Z88.8 Allergy status to other drugs, medicaments and biological substances; Z79.84 Long term (current) use of oral hypoglycemic drugs
CPT/HCPCS: J1100

== ENCOUNTER 2024-05-15 15:43 | Emergency (ER) | payer OTHER ==
[~2024-05-15] VITALS: Ht 167.6 cm; Wt 112.7 kg
[2024-05-15] MEDS ORDERED: HYDROmorphone HCL 1 MG/ML SYR IV PRN (17:30)
[2024-05-15] MEDS ORDERED: ondansetron HCL 4 MG/2 ML VIAL IV ONE (18:00)
[2024-05-15] MEDS ORDERED: HYDROCODON-ACE1 EA11 PO (18:37)
[2024-05-15] MEDS ORDERED: KETOROLAC TROMETHAMINE 30 MG/ML VIAL IV ONE (18:45)
[2024-05-15 19:00] VITALS: BP 125/70
== END 2024-05-15 19:00 | disposition home or self-care (01) ==
LOC: ED 15:43
DX: S73.102A Unspecified sprain of left hip, initial encounter (principal); M51.379 Other intervertebral disc degeneration, lumbosacral region without mention of lumbar back pain or lower extremity pain; J44.9 Chronic obstructive pulmonary disease, unspecified; E66.01 Morbid (severe) obesity due to excess calories; I10 Essential (primary) hypertension; E11.9 Type 2 diabetes mellitus without complications; Z88.0 Allergy status to penicillin; Z88.8 Allergy status to other drugs, medicaments and biological substances; Z91.018 Allergy to other foods; Z79.84 Long term (current) use of oral hypoglycemic drugs; Z79.899 Other long term (current) drug therapy; X50.1XXA Overexertion from prolonged static or awkward postures, initial encounter
CPT/HCPCS: 72131; 72192; 73502; 96374; 96375; 99284-25; J1885; J2405

== ENCOUNTER 2025-03-03 17:13 | Emergency (ER) | payer MEDICARE, OTHER ==
[~2025-03-03] VITALS: Ht 167.6 cm; Wt 109.6 kg
[~2025-03-03 17:13] MED LIST changes: +HYDROCODON-ACE1 EA11 PO
[2025-03-03] MEDS ORDERED: METRONIDAZOLE500 MG PO (17:25)
[2025-03-03] MEDS ORDERED: CEFDINIR300 MG PO (17:25)
[2025-03-03] MEDS ORDERED: ONDANSETRON ODT4 MG PO (17:25)
[2025-03-03] MEDS ORDERED: SEMGLEE (Y100 UNIT/2 SUB-Q (17:26)
[2025-03-03] MEDS ORDERED: METFORMIN HCL500 M1 PO (17:26)
[2025-03-03] MEDS ORDERED: NORTRIPTYLINE H50 MG PO (17:26)
[2025-03-03] MEDS ORDERED: PANTOPRAZOLE SO40 MG PO (17:26)
[2025-03-03 17:35] LABS: BASOPHILS 1.0 % (0.1-1.2); EOSINOPHILS 1.3 % (0.7-5.8); LYMPHOCYTES 29.3 % (19.3-51.7); MCH 27.1 PG (25.6-32.2); MCHC 32.4 g/dL (32.2-35.5); MCV 83.6 fL (79.4-94.8); MONOCYTES 6.2 % (4.7-12.5); NEUTROPHILS 61.9 % (34.0-71.1); RBC 4.50 M/uL (3.93-5.22)
[2025-03-03 17:46] LABS: ALT (SGPT) 49.0 U/L (14-59); AST (SGOT) 29.0 U/L (15-37); GLOMERULAR FILTRATION RATE,EST 91.0 mL/min (>60); PROTEIN, TOTAL 6.8 g/dL (6.4-8.2); UREA NITROGEN 12.0 mg/dL (7-18)
[2025-03-03 19:53] LABS: BLOOD/HGB, URINE NEGATIVE (Negative); KETONE, URINE SMALL (Negative); LEUK ESTERASE, URINE NEGATIVE (negative); NITRITE, URINE NEGATIVE (negative)
[2025-03-03] MEDS ORDERED: KETOROLAC TROMETHAMINE 30 MG/ML VIAL IV ONE (20:00)
[2025-03-03] MEDS ORDERED: PROMETHAZINE HC25 M1 PO (21:24)
[2025-03-03] MEDS ORDERED: HYDROCODON-ACE1 EA10 PO (21:24)
[2025-03-03] MEDS ORDERED: CEPHALEXIN500 M1 PO (21:24)
[2025-03-03] MEDS ORDERED: PROMETHAZINE HCL 25 MG HOME.PACK PO ONE (21:30)
[2025-03-03] MEDS ORDERED: HYDROCODONE BIT/ACETAMINOPHEN 5/325 MG 1 TAB HOME.PACK PO ONE (21:30)
[2025-03-03] MEDS ORDERED: CEPHALEXIN MONOHYDRATE 500 MG HOME.PACK PO ONE (21:30)
[2025-03-03 21:44] VITALS: BP 110/74
== END 2025-03-03 21:45 | disposition home or self-care (01) ==
LOC: ED 17:13
PROVIDERS: Emergency Medicine; Family Medicine
DX: K52.1 Toxic gastroenteritis and colitis (principal); T36.95XA Adverse effect of unspecified systemic antibiotic, initial encounter; K04.7 Periapical abscess without sinus; J44.89 Other specified chronic obstructive pulmonary disease; I10 Essential (primary) hypertension; E11.42 Type 2 diabetes mellitus with diabetic polyneuropathy; E66.01 Morbid (severe) obesity due to excess calories; Z68.39 Body mass index [BMI] 39.0-39.9, adult; Z88.0 Allergy status to penicillin; Z88.8 Allergy status to other drugs, medicaments and biological substances; Z91.018 Allergy to other foods; Z79.84 Long term (current) use of oral hypoglycemic drugs; Z79.4 Long term (current) use of insulin; Z79.899 Other long term (current) drug therapy
CPT/HCPCS: 36415; 80053; 81003; 85025; 96374; 96375; 99284-25; A9270; J1885; J2405